=== PATIENT | male | born 2005 | race Two or more races ===

== ENCOUNTER 2023-11-24 15:23 | Emergency (ER) | payer OTHER ==
[~2023-11-24] VITALS: Ht 188 cm; Wt 73.5 kg
== END 2023-11-24 22:04 | disposition home or self-care (01) ==
LOC: EMR PED 15:24 → ER 15:24 → EMR PED 17:21
DX: S29.8XXA Other specified injuries of thorax, initial encounter (principal); V49.88XA Car occupant (driver) (passenger) injured in other specified transport accidents, initial encounter; Y93.89 Activity, other specified; Y92.89 Other specified places as the place of occurrence of the external cause; Y99.8 Other external cause status